=== PATIENT | female | born 1990 | race African-American/Black ===

== ENCOUNTER 2018-01-28 13:48 | Emergency (ER) | payer BC, SELFPAY ==
[2018-01-28] MEDS ORDERED: Ketorolac Tromethamine 30 MG/ML VIAL ONE (14:52)
--- NOTE | 2018-01-28 15:33 | ULT ---
LEFT LOWER EXTREMITY VENOUS DOPPLER: Date: 01/28/18 HISTORY: Pain and edema in left lower leg and foot x2 weeks. COMPARISON: None. TECHNIQUE: Real-time Ruiz scale and color Doppler with spectral analysis of the left lower extremity venous syst em was performed. The common femoral, femoral, proximal portions of greater saphenous and deep femora l veins, as well as the popliteal and posterior tibial veins were interrogated. FINDINGS: There is moderate deep soft tissue edema. Normal flow, augmentation, and compression. IMPRESSION: No deep venous thrombosis. POS: [facility]
--- NOTE | 2018-01-28 15:34 | RAD ---
LEFT FOOT 3 VIEWS: Date: 01/28/18 HISTORY: Foot pain. COMPARISON: None. FINDINGS: Type I os naviculare. Lisfranc interval appears to be maintained. No acute displaced fracture or malalignment. Moderate dorsal midfoot edema. IMPRESSION: Moderate dorsal midfoot edema without displaced fracture or malalignment. POS: [facility]
== END 2018-01-28 15:41 | disposition home or self-care (01) ==
LOC: ERS 13:48
DX: M79.672 Pain in left foot (principal); R60.0 Localized edema
CPT/HCPCS: 96372; J1885

== ENCOUNTER 2025-03-15 09:50 | Emergency (ER) | payer BC, SELFPAY ==
[2025-03-15] MEDS ORDERED: Acetaminophen 325 MG TAB ONE (11:10)
== END 2025-03-15 12:22 | disposition home or self-care (01) ==
LOC: ERS 09:50
DX: S56.912A Strain of unspecified muscles, fascia and tendons at forearm level, left arm, initial encounter (principal); G62.9 Polyneuropathy, unspecified; X50.3XXA Overexertion from repetitive movements, initial encounter
CPT/HCPCS: 99282